=== PATIENT | male | born 1975 | race African-American/Black ===

== ENCOUNTER 2021-01-30 10:29 | Emergency (ER) | payer SELFPAY ==
[2021-01-30 10:40] VITALS: BP 121/84; PULSE 99; TEMP 97.2; BMI 27.4
== END 2021-01-30 11:52 | disposition home or self-care (01) ==
LOC: JER 10:29
DX: L84 Corns and callosities (principal); S91.301A Unspecified open wound, right foot, initial encounter
CPT/HCPCS: 99281-25